=== PATIENT | female | born 1960 | race Caucasian/White ===

== ENCOUNTER 2017-08-30 10:52 | Inpatient (IN) | payer OTHER ==
[~2017-08-30] VITALS: Ht 167.6 cm; Wt 93.3 kg
[2017-08-30] MEDS ORDERED: MAGN400T5 PO (12:00)
[2017-08-30] MEDS ORDERED: [UNRECOGNIZED DRUG - CODE] PO (12:00)
[2017-08-30] MEDS ORDERED: FAMO-12 PO (12:00)
[2017-08-30] MEDS ORDERED: DILT180C52 PO (12:00)
[2017-08-30] MEDS ORDERED: PRAV20TA3 PO (12:00)
[2017-08-30] MEDS ORDERED: ALBU1AER4 IN (12:00)
[2017-08-30] MEDS ORDERED: GABA100C9 PO (12:00)
[2017-08-30] MEDS ORDERED: TRAZ100T2 PO (12:00)
[2017-08-30] MEDS ORDERED: PRE5T PO (12:00)
[2017-08-30] MEDS ORDERED: POTA20TA53 PO (12:00)
[2017-08-30] MEDS ORDERED: LACT12CR17 EX (12:00)
[2017-08-30] MEDS ORDERED: TIOTCAP IN (12:00)
[2017-08-30] MEDS ORDERED: FURO40TA4 PO (12:00)
[2017-08-30] MEDS ORDERED: CHOL20007 PO (12:00)
[2017-08-30] MEDS ORDERED: FLU220IH INH (12:00)
[2017-08-30] MEDS ORDERED: IPRIH INH (12:00)
[2017-08-30] MEDS ORDERED: BLAC540C3 PO (12:00)
[2017-08-30] MEDS ORDERED: ALPR0.25 PO (12:00)
[2017-08-30] MEDS ORDERED: EVEN500C19 PO (12:00)
[2017-08-30] MEDS ORDERED: HYDR500C PO (12:00)
[2017-08-30] MEDS ORDERED: CITA-77 PO (12:00)
[2017-08-30] MEDS ORDERED: ASPI81TA27 PO (12:00)
[2017-08-30 12:13] LABS: Basophils # (auto) 0.1 uL; Basophils % (auto) 1.1 % (0.0-2.0); Eosinophils # (auto) 0.2 uL; Eosinophils % (auto) 1.7 % (0.0-7.0); Hematocrit 42.1 % (36.0-46.0); Hemoglobin 13.5 g/dL (12.2-16.2); Lymphocytes # (auto) 0.8 uL; Lymphocytes % (auto) 8.7 % (10.0-50.0); Mean Corpuscular Hemoglobin 31.6 pg (28.0-32.0); Mean Corpuscular Hgb Conc. 32.1 g/dL (32.0-36.0); Mean Corpuscular Volume 98.5 fL (80.0-100.0); Monocytes # (auto) 0.5 uL; Monocytes % (auto) 5.6 % (0.0-12.0); Neutrophils # (auto) 7.2 uL; Neutrophils % (auto) 82.9 % (37.0-80.0); Nucleated Red Blood Cells % 0.1 %; Platelet Count (auto) 429 10^3/uL (140-450); Red Blood Cells 4.27 10^6/uL (4.0-5.20); Red Cell Distribution Width 18.9 % (11.8-14.3); White Blood Cell 8.7 10^3/uL (4.4-10.8)
[2017-08-30] MEDS ORDERED: methylPREDNISolone SOD SUCC 125 MG/2 ML VL IV ONE (12:15)
[2017-08-30] MEDS ORDERED: IPRATROPIUM BROM 0.5 MG/2.5ML INH SOL HHN ONE (12:15)
[2017-08-30] MEDS ORDERED: ALBUTEROL SULF 2.5 MG/0.5ML(0.5%) NEB SOLN HHN ONE (12:15)
[2017-08-30 12:32] LABS: Albumin 3.5 g/dL (3.4-5.0); BUN/Creatinine Ratio 19.6; Bilirubin, Total 1.2 mg/dL (0.2-1.0); Calcium 8.5 mg/dL (8.5-10.1); Potassium 4.2 mmol/L (3.5-5.1)
[2017-08-30] MEDS ORDERED: SODIUM CHLORIDE 0.9% 500 ML IV ONE (12:45)
[2017-08-30] MEDS ORDERED: cefTRIAXone 1GM/10ml IVPUSH 10 ML IV ONE (13:15)
[2017-08-30 13:33] LABS: Magnesium 2.3 mg/dL (1.6-2.6)
[2017-08-30] MEDS ORDERED: MORPHINE SULF INJ 2 MG/ML SYRINGE 1ML IV PRN (14:00)
[2017-08-30] MEDS ORDERED: AZITHROMYCIN 500MG/ 250ML 250 ML IV ONE (14:00)
[2017-08-30] MEDS: ALBUTEROL SULF 2.5 MG/0.5ML(0.5%) NEB SOLN NEB SCH ×3 (14:20→21:29)
[2017-08-30] MEDS: IPRATROPIUM BROM 0.5 MG/2.5ML INH SOL NEB SCH ×3 (14:20→21:28)
[2017-08-30] MEDS ORDERED: PYRIDOXINE HCL 50 MG TAB PO SCH (14:30)
[2017-08-30] MEDS ORDERED: ALBUTEROL SULF 2.5 MG/0.5ML(0.5%) NEB SOLN NEB SCH (15:00)
[2017-08-30] MEDS: GABAPENTIN 100 MG CAP PO SCH ×2 (15:00→23:23)
[2017-08-30] MEDS: traZODone HCL 50 MG TAB PO SCH (18:38)
[2017-08-30 22:20] VITALS: BP 122/63
[2017-08-30] MEDS: methylPREDNISolone SOD SUCC 40 MG/ML VL IV SCH (23:23)
[2017-08-30] MEDS: HYDROXYUREA 500 MG CAP PO SCH (23:23)
[2017-08-30] MEDS: FAMOTIDINE 20 MG TAB PO SCH (23:24)
[2017-08-30] MEDS: PYRIDOXINE HCL 50 MG TAB PO SCH (23:24)
[2017-08-30] MEDS: PRAVASTATIN SODIUM 20 MG TAB PO SCH (23:24)
[2017-08-31] VITALS (7 sets, daily range): BP systolic 119–152; BP diastolic 63–90
[2017-08-31] MEDS: ALBUTEROL SULF 2.5 MG/0.5ML(0.5%) NEB SOLN NEB SCH ×7 (02:29→21:59)
[2017-08-31] MEDS: IPRATROPIUM BROM 0.5 MG/2.5ML INH SOL NEB SCH ×7 (02:29→22:00)
[2017-08-31 05:31] LABS: Basophils # (auto) 0 uL; Basophils % (auto) 0.4 % (0.0-2.0); Eosinophils # (auto) 0 uL; Hematocrit 40.8 % (36.0-46.0); Hemoglobin 12.9 g/dL (12.2-16.2); Lymphocytes # (auto) 0.4 uL; Lymphocytes % (auto) 8.1 % (10.0-50.0); Mean Corpuscular Hemoglobin 31.3 pg (28.0-32.0); Mean Corpuscular Hgb Conc. 31.5 g/dL (32.0-36.0); Mean Corpuscular Volume 99.4 fL (80.0-100.0); Monocytes # (auto) 0.1 uL; Monocytes % (auto) 2.1 % (0.0-12.0); Neutrophils # (auto) 4.6 uL; Neutrophils % (auto) 89.4 % (37.0-80.0); Nucleated Red Blood Cells % 0.3 %; Platelet Count (auto) 403 10^3/uL (140-450); Red Blood Cells 4.11 10^6/uL (4.0-5.20); Red Cell Distribution Width 18.4 % (11.8-14.3); White Blood Cell 5.1 10^3/uL (4.4-10.8)
[2017-08-31 05:50] LABS: BUN/Creatinine Ratio 25.5; Calcium 8.5 mg/dL (8.5-10.1); Potassium 4.3 mmol/L (3.5-5.1)
[2017-08-31] MEDS: methylPREDNISolone SOD SUCC 40 MG/ML VL IV SCH ×3 (05:55→20:20)
[2017-08-31] MEDS: GABAPENTIN 100 MG CAP PO SCH ×3 (05:56→23:24)
[2017-08-31] MEDS: ALPRAZolam 0.25 MG TAB PO PRN ×2 (09:31→16:03)
[2017-08-31] MEDS: CHOLECALCIFEROL (VITD3) 1,000 UNIT TAB PO SCH (09:32)
[2017-08-31] MEDS: MAGNESIUM OXIDE 400 MG TAB PO SCH (09:32)
[2017-08-31] MEDS: HYDROXYUREA 500 MG CAP PO SCH ×2 (09:32→23:23)
[2017-08-31] MEDS: FAMOTIDINE 20 MG TAB PO SCH ×2 (09:33→23:24)
[2017-08-31] MEDS: DILTIAZEM HCL 180MG ER CAP PO SCH (09:33)
[2017-08-31] MEDS: ASPirin-EC 81 mg tab PO SCH (09:33)
[2017-08-31] MEDS: CITALOPRAM HYDROBR 20 MG TAB PO SCH (09:33)
[2017-08-31] MEDS: POTASSIUM CHL 20 Meq TABLET PO SCH (09:34)
[2017-08-31] MEDS: FUROSEMIDE 40 MG TAB PO SCH (09:34)
[2017-08-31] MEDS: AZITHROMYCIN 500MG/ 250ML 250 ML IV SCH (09:36)
[2017-08-31] MEDS ORDERED: ENOXAPARIN SOD 40 MG/0.4 ML SYRINGE SC ONE (11:00)
[2017-08-31] MEDS ORDERED: POLYETHYLENE GLYCOL 17 GM PWDR PO PRN (11:30)
[2017-08-31] MEDS: DOCUSATE SOD 100 MG CAP PO SCH ×2 (12:22→22:00)
[2017-08-31] MEDS: FLUTICASONE PROP NASAL SPR 0.05 % (50MCG) 16GM EACHNOSTRI SCH ×2 (12:30→22:00)
[2017-08-31] MEDS ORDERED: ALPR0.5T7 PO (14:22)
[2017-08-31] MEDS ORDERED: ASPI81CH4 PO (14:22)
[2017-08-31] MEDS: NITROGLYCERIN 0.4 MG SL TAB SL PRN ×2 (15:54→16:08)
[2017-08-31] MEDS ORDERED: MORPHINE SULFATE 10 MG/ML INJ 1ML SDV IV PRN (16:00)
[2017-08-31] MEDS: traZODone HCL 50 MG TAB PO SCH (17:34)
[2017-08-31] MEDS: PYRIDOXINE HCL 50 MG TAB PO SCH (23:24)
[2017-08-31] MEDS: PRAVASTATIN SODIUM 20 MG TAB PO SCH (23:24)
[2017-08-31] MEDS: guaiFENesin-COD 10 ML UD PO PRN (23:25)
[2017-09-01] VITALS (7 sets, daily range): BP systolic 122–147; BP diastolic 56–76
[2017-09-01] MEDS: IPRATROPIUM BROM 0.5 MG/2.5ML INH SOL NEB SCH ×5 (02:02→18:27)
[2017-09-01] MEDS: ALBUTEROL SULF 2.5 MG/0.5ML(0.5%) NEB SOLN NEB SCH ×5 (02:02→18:27)
[2017-09-01] MEDS: guaiFENesin-COD 10 ML UD PO PRN ×2 (06:03→11:26)
[2017-09-01] MEDS: methylPREDNISolone SOD SUCC 40 MG/ML VL IV SCH ×3 (06:03→20:13)
[2017-09-01] MEDS: GABAPENTIN 100 MG CAP PO SCH ×3 (06:03→21:29)
[2017-09-01] MEDS ORDERED: IOHEXOL 350 MG/ML 100ML IJ ONE (06:51)
[2017-09-01] MEDS: HYDROmorphone HCL 2 MG/ML VL IV PRN ×4 (08:30→20:19)
[2017-09-01 09:40] LABS: Basophils # (auto) 0 uL; Basophils % (auto) 0.4 % (0.0-2.0); Eosinophils # (auto) 0 uL; Hematocrit 42.2 % (36.0-46.0); Hemoglobin 13.3 g/dL (12.2-16.2); Lymphocytes # (auto) 0.3 uL; Mean Corpuscular Hemoglobin 31.2 pg (28.0-32.0); Mean Corpuscular Hgb Conc. 31.6 g/dL (32.0-36.0); Mean Corpuscular Volume 98.6 fL (80.0-100.0); Monocytes # (auto) 0.3 uL; Monocytes % (auto) 2.8 % (0.0-12.0); Neutrophils # (auto) 9.6 uL; Neutrophils % (auto) 93.8 % (37.0-80.0); Platelet Count (auto) 416 10^3/uL (140-450); Red Blood Cells 4.28 10^6/uL (4.0-5.20); White Blood Cell 10.3 10^3/uL (4.4-10.8)
[2017-09-01] MEDS: MAGNESIUM OXIDE 400 MG TAB PO SCH (09:42)
[2017-09-01] MEDS: DOCUSATE SOD 100 MG CAP PO SCH ×2 (09:45→21:28)
[2017-09-01] MEDS: POTASSIUM CHL 20 Meq TABLET PO SCH (09:45)
[2017-09-01] MEDS: DILTIAZEM HCL 180MG ER CAP PO SCH (09:45)
[2017-09-01] MEDS: FAMOTIDINE 20 MG TAB PO SCH ×2 (09:45→21:29)
[2017-09-01] MEDS: ASPirin-EC 81 mg tab PO SCH (09:45)
[2017-09-01] MEDS: HYDROXYUREA 500 MG CAP PO SCH ×2 (09:45→21:29)
[2017-09-01] MEDS: CITALOPRAM HYDROBR 20 MG TAB PO SCH (09:45)
[2017-09-01] MEDS: CHOLECALCIFEROL (VITD3) 1,000 UNIT TAB PO SCH (09:45)
[2017-09-01] MEDS: FUROSEMIDE 40 MG TAB PO SCH (09:46)
[2017-09-01] MEDS: AZITHROMYCIN 500MG/ 250ML 250 ML IV SCH (09:47)
[2017-09-01 09:49] LABS: BUN/Creatinine Ratio 31.7; Calcium 8.9 mg/dL (8.5-10.1); Potassium 4.5 mmol/L (3.5-5.1)
[2017-09-01] MEDS: FLUTICASONE PROP NASAL SPR 0.05 % (50MCG) 16GM EACHNOSTRI SCH ×2 (10:00→21:30)
[2017-09-01] MEDS ORDERED: ENOXAPARIN SOD 40 MG/0.4 ML SYRINGE SC SCH (10:00)
[2017-09-01] MEDS ORDERED: GASTROGRAFIN 30 ML SOL ONE (14:48)
[2017-09-01] MEDS: traZODone HCL 50 MG TAB PO SCH (18:00)
[2017-09-01] MEDS: PANTOPRAZOLE 40 MG/10 ML VIAL IV SCH (21:29)
[2017-09-01] MEDS: PRAVASTATIN SODIUM 20 MG TAB PO SCH (21:29)
[2017-09-01] MEDS: PYRIDOXINE HCL 50 MG TAB PO SCH (21:30)
[2017-09-02] VITALS (7 sets, daily range): BP systolic 131–136; BP diastolic 69–81
[2017-09-02] MEDS: IPRATROPIUM BROM 0.5 MG/2.5ML INH SOL NEB SCH ×7 (00:04→18:28)
[2017-09-02] MEDS: ALBUTEROL SULF 2.5 MG/0.5ML(0.5%) NEB SOLN NEB SCH ×7 (00:04→18:28)
[2017-09-02] MEDS: methylPREDNISolone SOD SUCC 40 MG/ML VL IV SCH ×3 (04:20→20:13)
[2017-09-02 05:31] LABS: Basophils # (auto) 0 uL; Basophils % (auto) 0.2 % (0.0-2.0); Eosinophils # (auto) 0 uL; Hematocrit 40.6 % (36.0-46.0); Hemoglobin 12.8 g/dL (12.2-16.2); Lymphocytes # (auto) 0.2 uL; Lymphocytes % (auto) 2.8 % (10.0-50.0); Mean Corpuscular Hgb Conc. 31.5 g/dL (32.0-36.0); Mean Corpuscular Volume 98.5 fL (80.0-100.0); Monocytes # (auto) 0.2 uL; Neutrophils # (auto) 7.6 uL; Nucleated Red Blood Cells % 0.1 %; Platelet Count (auto) 380 10^3/uL (140-450); Red Blood Cells 4.12 10^6/uL (4.0-5.20); Red Cell Distribution Width 17.9 % (11.8-14.3)
[2017-09-02] MEDS: HYDROmorphone HCL 2 MG/ML VL IV PRN ×3 (05:47→20:34)
[2017-09-02] MEDS: GABAPENTIN 100 MG CAP PO SCH ×3 (05:48→21:05)
[2017-09-02 05:58] LABS: BUN/Creatinine Ratio 67.4; Calcium 9.2 mg/dL (8.5-10.1); Potassium 4.7 mmol/L (3.5-5.1)
[2017-09-02] MEDS: FLUTICASONE PROP NASAL SPR 0.05 % (50MCG) 16GM EACHNOSTRI SCH ×2 (10:00→21:04)
[2017-09-02] MEDS: AZITHROMYCIN 500MG/ 250ML 250 ML IV SCH (10:30)
[2017-09-02] MEDS: PANTOPRAZOLE 40 MG/10 ML VIAL IV SCH ×2 (10:30→21:05)
[2017-09-02] MEDS: CHOLECALCIFEROL (VITD3) 1,000 UNIT TAB PO SCH (10:31)
[2017-09-02] MEDS: HYDROXYUREA 500 MG CAP PO SCH ×2 (10:31→21:05)
[2017-09-02] MEDS: ASPirin-EC 81 mg tab PO SCH (10:31)
[2017-09-02] MEDS: POTASSIUM CHL 20 Meq TABLET PO SCH (10:32)
[2017-09-02] MEDS: DOCUSATE SOD 100 MG CAP PO SCH ×2 (10:33→21:05)
[2017-09-02] MEDS: FUROSEMIDE 40 MG TAB PO SCH (10:33)
[2017-09-02] MEDS: MAGNESIUM OXIDE 400 MG TAB PO SCH (10:33)
[2017-09-02] MEDS: FAMOTIDINE 20 MG TAB PO SCH ×2 (10:33→21:05)
[2017-09-02] MEDS: CITALOPRAM HYDROBR 20 MG TAB PO SCH (10:33)
[2017-09-02] MEDS: DILTIAZEM HCL 180MG ER CAP PO SCH (10:34)
[2017-09-02] MEDS: traZODone HCL 50 MG TAB PO SCH (18:07)
[2017-09-02] MEDS: PIPERACILLIN-TAZOB 3.375GM 50 ML IV SCH ×2 (18:16→23:45)
[2017-09-02] MEDS: PRAVASTATIN SODIUM 20 MG TAB PO SCH (21:05)
[2017-09-02] MEDS: metroNIDAZOLE 500MG/100ML 100 ML IV SCH (21:05)
[2017-09-02] MEDS: PYRIDOXINE HCL 50 MG TAB PO SCH (21:06)
[2017-09-03] VITALS (7 sets, daily range): BP systolic 110–142; BP diastolic 52–85
[2017-09-03] MEDS: ALBUTEROL SULF 2.5 MG/0.5ML(0.5%) NEB SOLN NEB SCH ×6 (00:19→18:29)
[2017-09-03] MEDS: IPRATROPIUM BROM 0.5 MG/2.5ML INH SOL NEB SCH ×7 (00:19→18:29)
[2017-09-03] MEDS: methylPREDNISolone SOD SUCC 40 MG/ML VL IV SCH ×3 (04:32→21:16)
[2017-09-03] MEDS: metroNIDAZOLE 500MG/100ML 100 ML IV SCH ×3 (04:32→21:17)
[2017-09-03] MEDS: GABAPENTIN 100 MG CAP PO SCH ×3 (05:24→21:30)
[2017-09-03] MEDS: PIPERACILLIN-TAZOB 3.375GM 50 ML IV SCH ×3 (05:40→18:00)
[2017-09-03 05:42] LABS: Basophils # (auto) 0.1 uL; Basophils % (auto) 0.9 % (0.0-2.0); Eosinophils # (auto) 0 uL; Hematocrit 43.4 % (36.0-46.0); Hemoglobin 13.7 g/dL (12.2-16.2); Lymphocytes # (auto) 0.2 uL; Mean Corpuscular Hemoglobin 31.4 pg (28.0-32.0); Mean Corpuscular Hgb Conc. 31.5 g/dL (32.0-36.0); Mean Corpuscular Volume 99.6 fL (80.0-100.0); Monocytes # (auto) 0.2 uL; Monocytes % (auto) 3.1 % (0.0-12.0); Neutrophils # (auto) 5.9 uL; Nucleated Red Blood Cells % 0.1 %; Platelet Count (auto) 355 10^3/uL (140-450); Red Blood Cells 4.35 10^6/uL (4.0-5.20); Red Cell Distribution Width 17.8 % (11.8-14.3); White Blood Cell 6.3 10^3/uL (4.4-10.8)
[2017-09-03 06:05] LABS: BUN/Creatinine Ratio 54.7; Calcium 9.3 mg/dL (8.5-10.1); Potassium 4.4 mmol/L (3.5-5.1)
[2017-09-03] MEDS: AZITHROMYCIN 500MG/ 250ML 250 ML IV SCH (10:00)
[2017-09-03] MEDS: FLUTICASONE PROP NASAL SPR 0.05 % (50MCG) 16GM EACHNOSTRI SCH ×3 (10:00→21:16)
[2017-09-03] MEDS: PANTOPRAZOLE 40 MG/10 ML VIAL IV SCH ×2 (10:00→21:17)
[2017-09-03] MEDS: FUROSEMIDE 40 MG TAB PO SCH (10:57)
[2017-09-03] MEDS: DOCUSATE SOD 100 MG CAP PO SCH ×2 (10:58→21:30)
[2017-09-03] MEDS: CITALOPRAM HYDROBR 20 MG TAB PO SCH (10:58)
[2017-09-03] MEDS: FAMOTIDINE 20 MG TAB PO SCH ×2 (10:58→21:30)
[2017-09-03] MEDS: CHOLECALCIFEROL (VITD3) 1,000 UNIT TAB PO SCH (10:58)
[2017-09-03] MEDS: POTASSIUM CHL 20 Meq TABLET PO SCH (10:58)
[2017-09-03] MEDS: ASPirin-EC 81 mg tab PO SCH (10:58)
[2017-09-03] MEDS: MAGNESIUM OXIDE 400 MG TAB PO SCH (10:59)
[2017-09-03] MEDS: HYDROXYUREA 500 MG CAP PO SCH ×2 (10:59→21:30)
[2017-09-03] MEDS: DILTIAZEM HCL 180MG ER CAP PO SCH (11:21)
[2017-09-03] MEDS: THROAT LOZENGES(CEPASTAT) MT PRN ×2 (12:00→16:25)
[2017-09-03] MEDS: traZODone HCL 50 MG TAB PO SCH (17:56)
[2017-09-03] MEDS: PRAVASTATIN SODIUM 20 MG TAB PO SCH (21:30)
[2017-09-03] MEDS: PYRIDOXINE HCL 50 MG TAB PO SCH (21:42)
[2017-09-04] VITALS: BP 135/61
[2017-09-04] MEDS: IPRATROPIUM BROM 0.5 MG/2.5ML INH SOL NEB SCH ×4 (00:19→19:07)
[2017-09-04] MEDS: ALBUTEROL SULF 2.5 MG/0.5ML(0.5%) NEB SOLN NEB SCH ×6 (00:19→19:07)
[2017-09-04 04:00] VITALS: BP 134/55
[2017-09-04] MEDS: methylPREDNISolone SOD SUCC 40 MG/ML VL IV SCH ×3 (04:00→20:49)
[2017-09-04] MEDS: GABAPENTIN 100 MG CAP PO SCH ×2 (05:42→14:14)
[2017-09-04] MEDS: metroNIDAZOLE 500MG/100ML 100 ML IV SCH ×2 (05:42→14:14)
[2017-09-04 05:49] LABS: Basophils # (auto) 0 uL; Basophils % (auto) 0.1 % (0.0-2.0); Eosinophils # (auto) 0 uL; Hematocrit 43.7 % (36.0-46.0); Hemoglobin 13.6 g/dL (12.2-16.2); Lymphocytes # (auto) 0.2 uL; Lymphocytes % (auto) 3.8 % (10.0-50.0); Mean Corpuscular Hemoglobin 31.2 pg (28.0-32.0); Mean Corpuscular Hgb Conc. 31.1 g/dL (32.0-36.0); Mean Corpuscular Volume 100.3 fL (80.0-100.0); Monocytes # (auto) 0.1 uL; Monocytes % (auto) 3.1 % (0.0-12.0); Neutrophils # (auto) 4.4 uL; Nucleated Red Blood Cells % 0.1 %; Platelet Count (auto) 347 10^3/uL (140-450); Red Blood Cells 4.36 10^6/uL (4.0-5.20); Red Cell Distribution Width 17.7 % (11.8-14.3); White Blood Cell 4.7 10^3/uL (4.4-10.8)
[2017-09-04] MEDS: THROAT LOZENGES(CEPASTAT) MT PRN ×2 (05:51→08:54)
[2017-09-04] MEDS: PIPERACILLIN-TAZOB 3.375GM 50 ML IV SCH ×4 (06:00→18:29)
[2017-09-04 06:01] LABS: BUN/Creatinine Ratio 52.4; Calcium 8.7 mg/dL (8.5-10.1); Potassium 4.2 mmol/L (3.5-5.1)
[2017-09-04 08:00] VITALS: BP 116/74
[2017-09-04] MEDS: PANTOPRAZOLE 40 MG/10 ML VIAL IV SCH (10:00)
[2017-09-04] MEDS: AZITHROMYCIN 500MG/ 250ML 250 ML IV SCH (10:00)
[2017-09-04] MEDS: FLUTICASONE PROP NASAL SPR 0.05 % (50MCG) 16GM EACHNOSTRI SCH (10:35)
[2017-09-04] MEDS: DOCUSATE SOD 100 MG CAP PO SCH (10:37)
[2017-09-04] MEDS: DILTIAZEM HCL 180MG ER CAP PO SCH (10:37)
[2017-09-04] MEDS: ASPirin-EC 81 mg tab PO SCH (10:37)
[2017-09-04] MEDS: CITALOPRAM HYDROBR 20 MG TAB PO SCH (10:37)
[2017-09-04] MEDS: POTASSIUM CHL 20 Meq TABLET PO SCH (10:38)
[2017-09-04] MEDS: FUROSEMIDE 40 MG TAB PO SCH (10:38)
[2017-09-04] MEDS: MAGNESIUM OXIDE 400 MG TAB PO SCH (10:38)
[2017-09-04] MEDS: HYDROXYUREA 500 MG CAP PO SCH (10:38)
[2017-09-04] MEDS: CHOLECALCIFEROL (VITD3) 1,000 UNIT TAB PO SCH (10:39)
[2017-09-04] MEDS: FAMOTIDINE 20 MG TAB PO SCH (10:39)
[2017-09-04 11:50] VITALS: BP 117/48
[2017-09-04 15:50] VITALS: BP 131/54
[2017-09-04] MEDS: traZODone HCL 50 MG TAB PO SCH (17:42)
[2017-09-04 19:52] VITALS: BP 113/72
== END 2017-09-04 21:26 | disposition short-term general hospital (02) | DRG 393 ==
LOC: ER 10:52 → TELE 10:53 → TELE-CENTR 19:50 → DOU IN ICU 09-01 18:47
PROVIDERS: ADMIT Internal Medicine; ATTEND Internal Medicine
PROC: 5A09357 Assistance with Respiratory Ventilation, Less than 24 Consecutive Hours, Continuous Positive Airway Pressure (ICD-10-PCS; principal; 2017-08-30)
PROC: 5A09357 Assistance with Respiratory Ventilation, Less than 24 Consecutive Hours, Continuous Positive Airway Pressure (ICD-10-PCS; 2017-09-02)
PROC: 5A09357 Assistance with Respiratory Ventilation, Less than 24 Consecutive Hours, Continuous Positive Airway Pressure (ICD-10-PCS; 2017-09-04)
DX: K63.1 Perforation of intestine (nontraumatic) (principal); J18.9 Pneumonia, unspecified organism; J96.21 Acute and chronic respiratory failure with hypoxia; I11.0 Hypertensive heart disease with heart failure; K66.8 Other specified disorders of peritoneum; I50.9 Heart failure, unspecified; E66.01 Morbid (severe) obesity due to excess calories; J96.22 Acute and chronic respiratory failure with hypercapnia; J44.1 Chronic obstructive pulmonary disease with (acute) exacerbation; J44.0 Chronic obstructive pulmonary disease with (acute) lower respiratory infection; I48.91 Unspecified atrial fibrillation; E78.5 Hyperlipidemia, unspecified; F17.210 Nicotine dependence, cigarettes, uncomplicated; F41.9 Anxiety disorder, unspecified; Z79.52 Long term (current) use of systemic steroids; Z79.82 Long term (current) use of aspirin; Z79.899 Other long term (current) drug therapy; Z82.49 Family history of ischemic heart disease and other diseases of the circulatory system; Z91.19 Patient's noncompliance with other medical treatment and regimen; Z99.81 Dependence on supplemental oxygen; Z68.33 Body mass index [BMI] 33.0-33.9, adult
CPT/HCPCS: 36415; 36600; 71045; 71275; 74021; 74176; 80048; 80053; 82805; 83605; 83735; 83880; 84484; 85025; 87040; 87081; 93005; 94640; 94660; 96374; 96375; 97163; 99291; C9113; J2543; J3490